=== PATIENT | male | born 1995 | race Two or more races ===

== ENCOUNTER 2020-12-13 21:09 | Emergency (ER) | payer MEDICAID ==
[~2020-12-13] VITALS: Ht 170.2 cm; Wt 72.7 kg
[2020-12-13 21:18] VITALS: BP 113/72
== END 2020-12-13 22:59 | disposition home or self-care (01) ==
LOC: ER 21:10
DX: M25.521 Pain in right elbow (principal); W18.31XA Fall on same level due to stepping on an object, initial encounter; Y93.89 Activity, other specified; Y92.89 Other specified places as the place of occurrence of the external cause; Y99.8 Other external cause status
CPT/HCPCS: 73080; 99283